=== PATIENT | male | born 1980 | race Caucasian/White ===

== ENCOUNTER 2024-11-25 16:02 | Emergency (ER) | payer OTHER ==
--- NOTE | 2024-11-25 16:20 | ERPHSYRPT ---
- History of Present Illness Time Seen by Provider: 11/25/24 16:20 Source: patient, family Exam Limitations: no limitations Physician History: This is a right-handed 44-year-old white male patient who presents to the emergency department by private vehicle secondary to a superficial laceration of the dorsal aspect of his left fifth digit. It occurred at work when he was using a razor knife to cut tubing/fiber. He is unsure of his last tetanus shot. Timing/Duration: today Quality: painful Severity: mild Location: hands (Right hand fifth digit) Associated Symptoms: denies symptoms Allergies/Adverse Reactions: cefaclor [From Ceclor] Adverse Reaction (Verified 11/25/24 16:23) Sulfa (Sulfonamide Antibiotics) Adverse Reaction (Verified 11/25/24 16:23) Home Medications: No Reportable Medications [No Reported Medications] 11/25/24 [History] Travel Risk - International Travel Have you traveled outside of the country in past 3 weeks: No - Emerging Infectious Disease Are you exhibiting symptoms associated with any current EIDs: No - Review of Systems Constitutional: No Symptoms Eyes: No Symptoms Ears, Nose, & Throat: No Symptoms Respiratory: No Symptoms Cardiac: No Symptoms Abdominal/Gastrointestinal: No Symptoms Genitourinary Symptoms: No Symptoms Musculoskeletal: No Symptoms Skin: Other (Skin laceration 1 cm dorsal aspect distal left fifth digit) Neurological: No Symptoms Psychological: No Symptoms Endocrine: No Symptoms Hematologic/Lymphatic: No Symptoms Immunological/Allergic: No Symptoms All Other Systems: Reviewed and Negative - Past Medical History Pertinent Past Medical History: No - Nursing Vital Signs Nursing Vital Signs: Initial Vital Signs Temperature 98.8 F 11/25/24 16:19 Pulse Rate 97 H 11/25/24 16:19 Respiratory Rate 17 11/25/24 16:19 Blood Pressure 131/80 11/25/24 16:19 O2 Sat by Pulse Oximetry 98 11/25/24 16:19 Pain Scale Pain Intensity 1 - Physical Exam General Appearance: no apparent distress, alert, thin Eye Exam: PERRL/EOMI, eyes nml inspection Ears, Nose, Throat Exam: normal ENT inspection, moist mucous membranes Neck Exam: normal inspection, non-tender, supple, full range of motion Respiratory Exam: airway intact, No chest tenderness, No respiratory distress Gastrointestinal/Abdomen Exam: No tenderness Rectal Exam: not done Back Exam: normal inspection, normal range of motion, No CVA tenderness Extremity Exam: lacerations (1 cm skin laceration dorsal aspect left fifth digit distallytransversely oriented), other (No active bleeding, no foreign body) Neurologic Exam: alert, oriented x 3, cooperative, coroner II-XII nml as tested, normal mood/affect, nml cerebellar function, nml station & gait, sensation nml Skin Exam: laceration (See above extremity section) SpO2 Interpretation: normal O2 Delivery: Room Air Procedures - Laceration/Wound Repair Right Proximal Dorsal Finger Time of Procedure: 17:25 Wound Location: Left, hand (Dorsal aspect fifth digit) Wound Length (cm): 1 Wound's Depth, Shape: superficial, linear Wound Explored: clean (Wound explored to the base. The wound is clean there is no foreign body noted. The examination occurred to the base in a bloodless field) Irrigated: Yes Hibiclens Prep: Yes Wound Repaired With: Steri-strips, Dermabond Progress: 11/25/24 17:34 There were no complications. The patient tolerated the procedure well. Ordered Tests: Medication Summary Discontinued Medications Generic Name Dose Route Start Last Admin Trade Name Juancarlosq PRN Reason Stop Dose Admin Diphtheria/Tetanus/Acell Pertussis 0.5 ml 11/25/24 17:22 11/25/24 17:26 Tdap --Diph,Pertuss(Acell),Tet Vac/Pf 0.5 Ml Vial IM 11/25/24 17:23 0.5 ml .ONCE ONE Administration Diphtheria/Tetanus/Acell Pertussis Confirm 11/25/24 17:25 Tdap --Diph,Pertuss(Acell),Tet Vac/Pf 0.5 Ml Vial Administered 11/25/24 17:26 Dose 0.5 ml IM .STK-MED ONE - Progress Progress: improved Progress Note: 11/25/24 17:34 My medical decision making and the assignment of low complexity to this patient's medical issue today is based on review of the patient's past medical history, review the patient's medication list, reviewed patient drug allergy list, history present illness and physical findings on examination. No radiographic or laboratory studies are necessary in this patient's workup. Differential diagnosis includes but is not limited to abrasion, laceration Counseled pt/family regarding: diagnosis Medical Desision Making - Diagnostic Testing Diagnostic test were ordered, analyzed, and reviewed by me: No - Risk of complications Minimal Risk: Minimal risk of morbidity - Departure Departure Disposition: Home Clinical Impression: Laceration of finger of left hand Condition: Stable Critical Care Time: No Additional Instructions: Keep the top bandage on for 24 hours. After 24 hours, remove top bandage and l eave the Steri-Strips in place. At that time you may rinse the site off daily. As the Steri-Strips start curling, you can trim them with scissors.
[2024-11-25 16:31] VITALS: TEMP 98.8
[2024-11-25 17:21] VITALS: BP 121/80; PULSE 79; RESP 16; O2SAT 100
[2024-11-25] MEDS ORDERED: Adacel Vial IM ONE (17:25)
[2024-11-25] MEDS: Adacel Vial IM ONE (17:26)
== END 2024-11-25 17:43 | disposition home or self-care (01) ==
LOC: ED 16:02
DX: S61.217A Laceration without foreign body of left little finger without damage to nail, initial encounter (principal); W26.0XXA Contact with knife, initial encounter; Y99.0 Civilian activity done for income or pay; Z23 Encounter for immunization
CPT/HCPCS: 12001; 90471; 90715; 99282; 99283